=== PATIENT | male | born 1990 ===

== ENCOUNTER → 2021-10-01 10:55 | Outpatient (BNVA) | payer OTHER, SELFPAY | PROVIDERS: Visit Provider Psychiatry & Neurology Neurology | DX: G47.33 Obstructive sleep apnea (adult) (pediatric) (principal); Z99.89 Dependence on other enabling machines and devices | CPT/HCPCS: 99212 ==

== ENCOUNTER → 2022-09-30 08:51 | Outpatient (BNVA) | payer BC, SELFPAY | PROVIDERS: PCP Neurological Surgery; Visit Provider Nurse Practitioner Family | DX: Z13.89 Encounter for screening for other disorder (principal) ==

== ENCOUNTER 2023-10-04 08:50 | Outpatient (AMB) | payer BC, SELFPAY ==
--- NOTE | 2023-10-04 09:03 | A.OFFVIS_ITS ---
Intake Vital Signs 10/04/23 09:09 Height 5 ft 11 in Weight 220 lb 8 oz BMI 30.8 BP 112/70 Blood Pressure Location Lt brachial Position Sitting Pulse 61 Pulse Source Pulse Oximeter Pulse Oximetry (%) 98 Oxygen Delivery Method Room Air Intake Visit Reasons: 1yr f/u - LVM w/address Intake Note: Patient presents for 1 year f/u. Since the new machine feeling more fatigue and more tired during the day Allergies aspirin Allergy (Intermediate, Verified 10/04/23 09:08) Rash crab Allergy (Intermediate, Verified 10/04/23 09:08) Rash enviormental Allergy (Intermediate, Uncoded 09/30/22 08:56) Coughing and sneezing HPI HPI Comments History of Present Illness Details 32 y/o male patient presents for follow up of TRENA on CPAP. CPAP compliance and therapy report (07/03/23-09/30/23) reviewed with the patient. Pt is on CPAP [id number]. Usage days 99%, average usage about 6 hours. The max pressure was 12.7 and AHI is 0.9/hr. Pt reports he sleeps well with CPAP, from 11 pm to 6 am. He had new CPAP, and he thinks that he is more tired during daytime since he use the new CPAP. He gained some wt, but not much. Pt reports he does not do exercise. COUNT INCLUDES THE [facility] Medical History Hernia Hyperlipidemia Surgical History History of tooth extraction Family History Mother HTN (hypertension) Father No problems noted. Social History Household Members: Spouse Alcohol intake: never Patient Tobacco Use Status: Never used Tobacco Review of Systems Const All systems reviewed & are unremarkable except as noted in HPI and below ENT Reports Normal hearing present Neuro Reports Normal hearing present Physical Exam Vital Signs: Last Vital Signs Pulse 61 10/04/23 09:09 BP 112/70 10/04/23 09:09 Pulse Ox 98 10/04/23 09:09 Oxygen Delivery Method Room Air 10/04/23 09:09 BMI result Body Mass Index 30.8 Const General: cooperative and healthy appearing Nutritional Appearance: obese Orientation/consciousness: patient oriented x3 Limitations: no limitations Neck Neck: Yes full ROM and Yes supple Resp Effort & Inspection: normal respiratory effort and able to speak in complete sentences Neuro General: patient oriented x3, gait normal and moves all extremities Cranial nerves: Yes Bilaterally intact EOM present, Yes Normal facial strength present, Yes Midline tongue present, Yes Normal hearing present, Yes Ability to bilaterally rotate head present and Yes Ability to bilaterally elevate shoulders present Cognition (Neuro): normal cognition Gait exam (Neuro): Normal gait present Motor exam (neuro): 5/5 motor strength present throughout and no tremor noted Psych Appearance: grossly normal Mental Status: mental status grossly normal Speech and movement: Normal speech and movement present Affect: normal affect Attitude: cooperative Assessment & Plan Assessment & Plan (1) Obstructive sleep apnea: Code(s): G47.33 - Obstructive sleep apnea (adult) (pediatric) Plan Advised patient to continue to use APAP at [id number]. Stressed compliance, use CPAP nightly and more than 4 hrs. Encouraged patient to do daily exercise and wt reduction advised. Continue to practice good sleep hygiene. Coding Level of Care Code Est Pt Level 3 (40099) Diagnoses Obstructive sleep apnea G47.33
[2023-10-04 09:09] VITALS: BP 112/70; PULSE 61; O2SAT 98; BMI 30.8
== END 2023-10-04 09:26 | disposition home or self-care (01) ==
PROVIDERS: Visit Provider Nurse Practitioner Family
DX: G47.33 Obstructive sleep apnea (adult) (pediatric) (principal)
CPT/HCPCS: 99213

== ENCOUNTER → 2023-10-04 08:50 | Outpatient (BNVA) | payer BC, SELFPAY | PROVIDERS: Visit Provider Nurse Practitioner Family ==

== ENCOUNTER 2024-10-02 09:21 | Outpatient (AMB) | payer BC, SELFPAY ==
--- NOTE | 2024-10-02 09:37 | MHC.OFFVIS ---
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 Ongoing management with CPAP therapy has been effective, reflected by a residual AHI of 0.8. The patient uses distilled water to avoid sediment issues and reports overall adequate sleep and daytime energy levels. Sleep - Bedtime routine and sleep environment using CPAP machine. - Adequate sleep quality with CPAP, no reported nighttime disturbances. - Average CPAP use is 6 hours and 26 minutes per night. PAP compliance report reviewed. Compliance report date range: 06/28/2024 through 09/25/2024 Overall usage: 100 percent Usage greater than 4 hours: 98 percent PAP setting: APAP 7-17 cmH2O with EPR set 2 Average usage on days used: 6 hours and 26 minutes Average mask leakage: 1 LPM Residual AHI: 0.8 per hour PFSH Medical History Hernia Hyperlipidemia Surgical History History of tooth extraction Family History Mother HTN (hypertension) Father No problems noted. Social History Household Members: Spouse Alcohol intake: never Patient Tobacco Use Status: Never used Tobacco Physical Exam Vital Signs: Last Vital Signs Pulse 64 10/02/24 09:39 BP 120/72 10/02/24 09:39 Pulse Ox 98 10/02/24 09:39 Oxygen Delivery Method Room Air 10/02/24 09:39 BMI result Body Mass Index 28.0 Const General: no acute distress Orientation/consciousness: patient oriented x3 Resp Effort & Inspection: normal respiratory effort and able to speak in complete sentences Neuro General: patient oriented x3 Psych Mental Status: mental status grossly normal Speech and movement: Clear speech present Attitude: cooperative Assessment & Plan Assessment & Plan (1) Obstructive sleep apnea: Code(s): G47.33 - Obstructive sleep apnea (adult) (pediatric) Category: Medical Plan Discussion Notes We discussed the continued use of CPAP therapy for obstructive sleep apnea, and the importance of regular maintenance and supply updates, including changing the water tank approximately every six months to prevent issues. I provided guidance on the distinction in responsibilities between the clinic and the respiratory company for supplies. Satisfied with the current treatment as it maintains an AHI below 1. A follow-up is advised annually unless further concerns arise. Plan - Continue with CPAP at current settings. Prescribe supplies with focus on water tank. Follow guidelines for maintenance. Annual assessment or as-needed follow-up. Communication with services to ensure support. - Continue APAP 7-17 cmH2O with EPR set 2 nightly with a goal of greater than 4 hours nightly, as patient is experiencing good clinical effect from use. - Clean and change PAP supplies routinely, including filters, masks, tubing, and water reservoir. - Use distilled water in PAP water resorvoir. Patient was informed and verbally consented to the use of an ambient scribe for clinic note documentation during this visit. Pt to follow-up in 12 months or sooner prn. Coding Level of Care Code Est Pt Level 3 (07137) Diagnoses Obstructive sleep apnea G47.33
[2024-10-02 09:39] VITALS: BP 120/72; PULSE 64; O2SAT 98; BMI 28.0
== END 2024-10-02 10:09 | disposition home or self-care (01) ==
LOC: HO.HSMS 09:22
PROVIDERS: PCP Internal Medicine; Visit Provider Nurse Practitioner Family
DX: G47.33 Obstructive sleep apnea (adult) (pediatric) (principal)
CPT/HCPCS: 99213